=== PATIENT | male | born 1980 | race Caucasian/White ===

== ENCOUNTER 2016-05-19 09:05 | Outpatient (CLI) | payer OTHER ==
--- NOTE | 2016-05-19 10:59 | DIAGNOSTIC IMAGING REPORT ---
PROCEDURE: CT ABDOMEN/PELVIS W/O CONTRAST INDICATION: Right flank pain x 10 days, initial encounter TECHNIQUE: Noncontrast axial images were obtained of the entire abdomen and pelvis with sagittal and coronal reformations. COMPARISON: None. FINDINGS: ABDOMEN: Lung base are clear. Heart size is normal. Liver, gallbladder, pancreas, spleen (splenule), adrenal glands and right kidney are normal. 2 cm left renal cyst. No calculi or hydronephrosis. Normal abdominal aorta. Nonspecific bowel gas pattern. PELVIS: Appendix. Mild sigmoid diverticulosis. There is no pelvic mass, inflammatory changes or free fluid. Bones are unremarkable. IMPRESSION: 1. 2 cm left renal cyst 2. Mildly prominent appendix without inflammatory changes. Correlate clinically 3. Mild sigmoid diverticulosis 4. Results discussed with Savage Jeronimo All CT scans at this facility use dose modulation, iterative reconstruction, and/or weight-based dosing when appropriate to reduce radiation dose to as low as reasonably achievable.
== END 2016-05-19 23:00 ==
LOC: CT SRH 09:05
DX: R10.11 Right upper quadrant pain (principal); N28.1 Cyst of kidney, acquired; K57.30 Diverticulosis of large intestine without perforation or abscess without bleeding